=== PATIENT | female | born 1990 | race Caucasian/White ===

== ENCOUNTER 2019-06-03 08:31 | Emergency (ER) | payer MEDICAID, OTHER ==
[2019-06-03 09:43] LABS: ABSOLUTE BASOPHILS # (AUTO) 0.1 10^3/uL (0.0-0.2); ABSOLUTE MONOCYTES (AUTO) 0.5 10^3/uL (0.1-1.4); BASOPHILS % (AUTO) 0.8 % (0-2); EOSINOPHILS % (AUTO) 0.3 % (0-6); HEMATOCRIT 40.3 % (36.0-47.0); HEMOGLOBIN 13.4 g/dL (12.0-15.5); LYMPHOCYTES % (AUTO) 30.9 % (13-45); MEAN CORPUSCULAR HEMOGLOBIN 28.2 pg (27.0-33.4); MEAN CORPUSCULAR HGB CONC 33.3 g/dL (32.0-36.0); MEAN CORPUSCULAR VOLUME 85 fl (80-97); MONOCYTES % (AUTO) 7.7 % (3-13); PLATELET COUNT 364 10^3/uL (150-450); RED BLOOD COUNT 4.76 10^6/uL (3.72-5.28); RED CELL DISTRIBUTION WIDTH 13.7 % (11.5-14.0); SEGMENTED NEUTROPHILS % (AUTO) 60.3 % (42-78); TOTAL CELLS COUNTED % (AUTO) 100 %; WHITE BLOOD COUNT 6.6 10^3/uL (4.0-10.5)
[2019-06-03 09:57] LABS: APPEARANCE,URINE CLOUDY; BILIRUBIN,URINE SMALL (NEGATIVE); GLUCOSE, URINE NEGATIVE (NEGATIVE); KETONES,URINE 20 mg/dL (NEGATIVE); LEUKOCYTE ESTERASE,URINE NEGATIVE (NEGATIVE); NITRITE,URINE NEGATIVE (NEGATIVE); PROTEIN,URINE 30 mg/dL (NEGATIVE); URINE SPECIFIC GRAVITY 1.026
[2019-06-03 09:58] LABS: COLOR,URINE DARK YELLOW
[2019-06-03 10:02] LABS: ALBUMIN 4.6 g/dL (3.5-5.0); ALKALINE PHOSPHATASE 62 U/L (38-126); ANION GAP 12 (5-19); ASPARTATE AMINO TRANSFERASE 57 U/L (14-36); BILIRUBIN,DIRECT 0.3 mg/dL (0.0-0.4); BILIRUBIN,TOTAL 0.7 mg/dL (0.2-1.3); BLOOD UREA NITROGEN 21 mg/dL (7-20); CALCIUM 9.8 mg/dL (8.4-10.2); CARBON DIOXIDE 25 mmol/L (22-30); CHLORIDE 103 mmol/L (98-107); GLUCOSE 90 mg/dL (75-110); POTASSIUM 4.7 mmol/L (3.6-5.0)
[2019-06-03 10:06] LABS: ACETAMINOPHEN < 10 ug/mL (10-30); ALCOHOL < 10 mg/dL (NONE DETECTED); SALICYLATE < 1.0 mg/dL (2.0-20.0)
[2019-06-03 10:14] LABS: URINE BARBITURATES SCREEN NEGATIVE; URINE BENZODIAZEPINES SCREEN UNCONFIRMED POSITIVE; URINE COCAINE SCREEN NEGATIVE; URINE MARIJUANA (THC) SCREEN UNCONFIRMED POSITIVE; URINE METHADONE SCREEN NEGATIVE; URINE PHENCYCLIDINE SCREEN NEGATIVE
--- NOTE | 2019-06-03 11:56 | ER Document Report ---
ED General - General TRAVEL OUTSIDE OF THE [place] IN LAST 30 DAYS: No - Related Data Home Medications: None <NYLA COTA - Last Filed: 06/03/19 13:30> <SHARATH ARCE - Last Filed: 06/03/19 13:38> - General Chief Complaint: Psych Problem Stated Complaint: PSYCH EVAL Time Seen by Provider: 06/03/19 10:38 - HPI Notes: Patient is a 29-year-old female who presents emergency department for evaluation. She is asking for help with substance abuse issues. She admits to using heroin, methamphetamine, marijuana, benzodiazepines. She states she been on a binge for nearly the last 6 months. She denies any suicidal or homicidal ideation. No visual or auditory hallucination. She states her last use was about 2-1/2 days ago. She states she is hurting everywhere. She is had some nausea but no emesis. She cannot remember her last bowel movement, but admits she has not been eating much either. (NYLA COTA) - Related Data Allergies/Adverse Reactions: No Known Allergies Allergy (Verified 07/22/16 20:48) Past Medical History - General Information source: Patient - Social History Smoking Status: Current Every Day Smoker Chew tobacco use (# tins/day): No Frequency of alcohol use: None Drug Abuse: Heroin, Marijuana, Methamphetamine, Prescription drugs Family History: Reviewed & Not Pertinent Patient has suicidal ideation: No Patient has homicidal ideation: No Psychiatric Medical History: Reports: Hx Anxiety, Hx Depression Past Surgical History: Reports: Hx Section, Hx Tubal Ligation - Immunizations Hx Diphtheria, Pertussis, Tetanus Vaccination: No - refused <RUSSELMATEONYLA - Last Filed: 06/03/19 13:30> Review of Systems - Review of Systems Constitutional: See HPI EENT: No symptoms reported Cardiovascular: No symptoms reported Respiratory: No symptoms reported Gastrointestinal: No symptoms reported Genitourinary: No symptoms reported Musculoskeletal: No symptoms reported Skin: No symptoms reported Neurological/Psychological: See HPI <RUSSELMATEONYLA - Last Filed: 06/03/19 13:30> Physical Exam <NYLA COTA - Last Filed: 06/03/19 13:30> - Vital signs Vitals: Temp Pulse Resp BP Pulse Ox 98 F 103 H 16 151/97 H 97 06/03/19 08:34 06/03/19 08:34 06/03/19 08:34 06/03/19 08:34 06/03/19 08:34 - Notes Notes: This is a pleasant 29-year-old female who appears her stated age. She is calm and cooperative, intermittently tearful. No acute distress. Vital signs reviewed, please refer to chart. Head is normocephalic, atraumatic. Pupils equal round, reactive to light. Neck is supple without meningismus. Heart is regular rate and rhythm. Lungs are clear to auscultation bilaterally. Abdomen is soft, nontender, normoactive bowel sounds throughout. Extremities without cyanosis, clubbing. Posterior calves are nontender. Peripheral pulses are equal. Skin is warm and dry. Patient is awake, alert, neurological exam is nonfocal. (NYLA COTA) Course - Laboratory Result Diagrams: 06/03/19 09:23 06/03/19 09:23 <NYLA COTA - Last Filed: 06/03/19 13:30> - Laboratory Result Diagrams: 06/03/19 09:23 06/03/19 09:23 <SHARATH ARCE - Last Filed: 06/03/19 13:38> - Re-evaluation Re-evalutation: 06/03/19 11:55 Patient presents emergency department for evaluation. She clearly has multiple polysubstance abuse issues. She would like help with detox. I believe she is in a candidate for [facility]. She does have some coexistent depression but she is not actively suicidal. She is medically cleared at this time. Awaiting appropriate disposition, hopefully a bed can be made available at [facility]. (NYLA COTA) - Vital Signs Vital signs: Temp Pulse Resp BP Pulse Ox 97.6 F 73 14 130/90 H 100 06/03/19 12:16 06/03/19 12:16 06/03/19 12:16 06/03/19 12:16 06/03/19 12:16 - Laboratory Laboratory results interpreted by me: 06/03/19 06/03/19 09:23 09:23 BUN 21 H AST 57 H Urine Protein 30 H Urine Ketones 20 H Urine Bilirubin SMALL H Urine Urobilinogen 4.0 H Salicylates < 1.0 L Acetaminophen < 10 L Discharge <NYLA COTA - Last Filed: 06/03/19 13:30> <SHARATH ARCE - Last Filed: 06/03/19 13:38> - Discharge Clinical Impression: Polysubstance abuse, Depression Condition: Stable Disposition: HOME, SELF-CARE Instructions: 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 You are being transported to [facility] for further care at this time. Return to the ED with worsening or new concerning symptoms of any sort. NARCOTIC / OPIOD ABUSE: Narcotics and opiods are pain-relieving drugs that are often abused. They are addicting. Narcotics cause euphoria, but it often takes increasing amounts to "feel good" and avoid withdrawal symptoms. Overdose of narcotics causes small pupils, coma, and decreased breathing. It's a common cause of . Purity of street narcotics is unpredictable. Injection of narcotics is risky for abscesses, endocarditis (heart infection), pneumonia, and AIDS. Withdrawal from narcotics causes goose bumps, watery mouth, sweating, nasal congestion, muscle aches, abdominal cramps, vomiting, and diarrhea. There's often restlessness and confusion. Treatment programs are available, but you must make the decision to quit. Medication (such as clonidine) can be prescribed to control the symptoms of withdrawal. AMPHETAMINE / METHAMPHETAMINE ABUSE: Amphetamines are addicting stimulants. Amphetamines overstimulate the nervous system and give a false feeling of power and mastery. These drugs may be obtained as prescription pills for weight loss, narcolepsy, or attention-deficit disorder. More often they're bought as an illegal street drug, methamphetamine (crank, crystal, speed). Using amphetamines repeatedly can lead to serious medical problems includi ng malnutrition, severe depression, and paranoia. It can take increasing amounts to feel good. Eventually, there will be a "burn out." When you go off amphetamines there is a period of depression that may last for weeks or even months. High doses of amphetamines can cause seizures, confusion, hallucinations, delusions, high blood pressure, muscle damage, heart damage, or sudden . Many times these deadly complications occur even with "normal" doses. Injection of amphetamines is risky for developing abscesses, endocarditis (heart infection), pneumonia, and AIDS. Withdrawal from amphetamines often causes anxiety, depression, and drug cravings. Some users become paranoid and psychotic. There may be cramps, nausea, and vomiting. Many treatment programs are available, but you must make the decision to quit. Medication can be prescribed to control the symptoms of amphetamine toxicity (beta blockers or benzodiazepines). Withdrawal symptoms may require tranquilizers. OVERDOSE / INGESTION: You have taken more medication than you should have. After your evaluation and care, it is felt that your overdose is not likely to be harmful or of any significant consequences to you and you are being discharged. In the future, you should be careful not to take more medications than what is prescribed for you. Although your overdose does not seem to be of any danger to you at this time, if you develop any unusual or unexpected symptoms after your discharge, you should return to the Emergency Department immediately for re-evaluation. FOLLOW-UP CARE: If you have been referred to a physician for follow-up care, call the physicians office for an appointment as you were instructed or within the next two days. If you experience worsening or a significant change in your symptoms, notify the physician immediately or return to the Emergency Department at any time for re-evaluation.
[2019-06-03 14:35] VITALS: BP 136/87
--- NOTE | 2019-06-04 13:09 | EKG REPORT ---
SEVERITY:- OTHERWISE NORMAL ECG - SINUS RHYTHM BORDERLINE RIGHT AXIS DEVIATION : Confirmed by: Gladys Rubio MD 04-Jun-2019 13:08:05
== END 2019-06-03 14:36 | disposition home or self-care (01) ==
LOC: ER 08:31
DX: F11.10 Opioid abuse, uncomplicated (principal); F12.10 Cannabis abuse, uncomplicated; F15.10 Other stimulant abuse, uncomplicated; F32.9 Major depressive disorder, single episode, unspecified; R11.0 Nausea; R52 Pain, unspecified; F17.200 Nicotine dependence, unspecified, uncomplicated
CPT/HCPCS: 36415; 80053; 80307; 81001; 81025; 85025; 93005; 93010; 99284